=== PATIENT | female | born 1960 | race American Indian/Alaskan Native ===

== ENCOUNTER 2018-06-12 15:50 | Outpatient (CLI) | payer MEDICARE, OTHER ==
--- NOTE | 2018-06-13 13:51 | Mammography Report ---
BILATERAL DIGITAL SCREENING MAMMOGRAM with CAD: 06/12/18 15:50:00 CLINICAL: Routine screening. COMPARISON: None available. FINDINGS: There are bilateral scattered areas of fibroglandular density.No mass, architectural distortion or suspicious calcifications. IMPRESSION: No mammographic evidence of malignancy. BI-RADS CATEGORY: 1 -- Negative RECOMMENDATION: Routine mammographic screening in one year. COMMENT: Patient follow-up letters are generated by our [employer] application.
== END 2018-06-12 15:51 | disposition home or self-care (01) ==
LOC: SPVWC 15:50
PROVIDERS: ATTEND Surgery
DX: Z12.31 Encounter for screening mammogram for malignant neoplasm of breast (principal)
CPT/HCPCS: 77067

== ENCOUNTER 2018-12-22 13:48 | Inpatient (IN) | payer OTHER ==
[2018-12-22] MEDS ORDERED: SODIUM CHLORIDE FLUSH SYRINGE 10 ML IV PRN (14:07)
[2018-12-22] MEDS ORDERED: ZOFRAN IV PRN (14:07)
[2018-12-22] MEDS ORDERED: D5/0.45NS 1,000 ML IV SCH (15:00)
[2018-12-22] MEDS: LOVENOX SUB-Q SCH (18:00)
--- NOTE | 2018-12-22 19:02 | History and Physical Report ---
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 Radiating to the left side of the abdomen. Pain is 8-10 over 10. Haivng regular bowel movement with loss of appetite. Nauseated but no vomiting. Unable to keep any food down from nausea. Denies any fever. No hematemesis or melena. No alteration in bowel habits. On physical examination in my office patient was very tender in the right upper quadrant with rebound. Admission was therefore requested for further evaluation and management as patient was in severe pain while in my office. Past History Past Medical History: other (cancer of the appendix s/p resection, right renal stent for right hydronephrosis) Past Surgical History: Other (exploratory lap appendix) Social history: denies: smoking, alcohol abuse, prescription drug abuse Family history: CAD. denies: no significant family history Medications and Allergies Allergies Allergy/AdvReac Type Severity Reaction Status Date / Time No Known Allergies Allergy Unverified 12/22/18 14:07 Home Medications Medication Instructions Recorded Confirmed Last Taken Type Ibuprofen [Motrin 800 MG tab] 800 mg PO Q6HR PRN 12/23/18 12/23/18 Unknown History Active Meds: Active Medications Enoxaparin Sodium (Lovenox) 30 mg SUB-Q QDAY AMBER Dextrose/Sodium Chloride (D5/0.45ns) 1,000 mls @ 125 mls/hr IV DIRECT AMBER Levofloxacin/Dextrose (Levaquin 750mg/150ml) 750 mg in 150 mls @ 100 mls/hr IV Q24HR AMBER; Protocol Morphine Sulfate (Morphine) 2 mg IV Q4H PRN PRN Reason: Pain, Moderate (4-6) Ondansetron HCl (Zofran) 4 mg IV Q8H PRN PRN Reason: Nausea And Vomiting Sodium Chloride (Sodium Chloride Flush Syringe 10 Ml) 10 ml IV BID AMBER Sodium Chloride (Sodium Chloride Flush Syringe 10 Ml) 10 ml IV PRN PRN PRN Reason: LINE FLUSH Review of systems Constitutional: Well Nourished and Well developed. Head: NC/ AT Eyes: Denies any visual impairments. No discharge from the eyes Nose: Denies any rhinorrhea or epistaxis Throats: Denies any post nasal drainage. Ears: Denies any hearing deficits Cardiovascular system: Denies any chest pain, shortness of breath, orthopnea, paroxysmal nocturnal dyspnea, or palpitation. Respiratory system: Denies any cough, difficulty breathing, wheezing, pleuritic chest pain, Gastrointestinal system: Has abdominal pain, nausea No vomiting, hematemesis or melena. Neurological system: Denies any headache, slurred speech, facial droop, lateralizing weakness Genitalia system: Denies any dysuria, urinary frequency or urgency, urethral discharge Skin: No rashes, hyperpigmented spots. Hematological: Denies any cervical tenderness hemorrhages or petechia. Immunological: Denies any multiple septic spots, Lymphatic: Denies any generalized lymphadenopathy. Endocrine: Denies any polyuria, polydipsia, polyphagia. No heat or cold intolerance. Musculoskeletal system: No joint pain or swelling. Psych: No visual, tactile, auditory or hallucination Exam - Physical Exam Narrative exam: Constitutional: Well-nourished well-developed. In no distress Head: Normocephalic atraumatic Eyes: Pupils are equal round and reactive to light Nose: No enlarged turbinates, no septal deviation. Mouth: Moist mucous membranes. Neck: Supple no thyromegaly. No bruit. No JVD Heart: Regular rate and rhythm, S1-S2 normal. No rubs murmurs or gallop Lungs: Tender in the right upper quadrants Clear to auscultation bilaterally. no rales or rhonchi Abdomen: Soft, tender right upper quadrant with guarding and rebound. Bowel sound are present. Extremities: No edema, no cyanosis, no clubbing. Neuro: Alert oriented Oriented x3. No focal sensory or motor deficit. Skin: No rashes or hyperpigmented spots Musculoskeletal system: No joint pain or swelling Hematological: No petechia or subcutanous hemorrhages. Immunological: No multiple septic spots on the skin Lymphatic: No generalized lymphadenopathy Psychiatry: Euthymic. Calm. 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 Radiating to the left side of the abdomen. Pain is 8-10 over 10. Having regular bowel movement with loss of appetite. Nauseated but no vomiting. Unable to keep any food down from nausea. Denies any fever. No hematemesis or melena. No alteration in bowel habits. On physical examination in my office patient was very tender in the right upper quadrant with rebound. Admission was therefore requested for further evaluation and management as patient was in severe pain while in my office. 1.RUQ pain possibly Acute cholecyctitis 2. right inguinal mass - getting bigger in size 3. History of cancer of the appendix s/p excision Plan Nothing by mouth, IV hydration, blood and urine culture, IV Levaquin empirically, IV morphine Obtain a CT scan of the abdomen and pelvis Surgical consult Follow-up with lab results of the CT scan report DVT prophylaxis with Lovenox and GI with pantapraazole
[2018-12-22] MEDS: MORPHINE IV PRN ×2 (19:25→23:25)
[2018-12-22] MEDS: LEVAQUIN 750MG/150ML 750 MG/150 ML BAG IV SCH (19:27)
[2018-12-22] MEDS: SODIUM CHLORIDE FLUSH SYRINGE 10 ML IV SCH (21:10)
[2018-12-22 21:15] LABS: Basophils % (Auto) 0.5 % (0.0-1.8); Eosinophils # (Auto) 0.1 K/mm3 (0.0-0.4); Eosinophils % (Auto) 0.9 % (0.0-4.3); Hemoglobin 9.1 gm/dl (10.1-14.3); Lymphocytes # (Auto) 2.5 K/mm3 (1.2-5.4); Lymphocytes % (Auto) 28.8 % (13.4-35.0); Mean Corpuscular HGB Conc 34 % (30-34); Mean Corpuscular Volume 87 fl (79-97); Monocytes # (Auto) 1.1 K/mm3 (0.0-0.8); Monocytes % (Auto) 12.7 % (0.0-7.3); Platelet Count 535 K/mm3 (140-440); Red Blood Count 3.11 M/mm3 (3.65-5.03)
[2018-12-22 21:18] LABS: INR 1.22 (0.87-1.13)
[2018-12-22 21:19] LABS: Partial Thromboplastin Time 29.3 Sec. (24.2-36.6)
[2018-12-22 21:29] LABS: Albumin 2.9 g/dL (3.9-5); BUN/Creatinine Ratio 18; Blood Urea Nitrogen 11 mg/dL (7-17); Hemolysis Index 11
[2018-12-22 21:31] LABS: Alanine Aminotransferase < 5 units/L (7-56)
--- NOTE | 2018-12-22 22:34 | Cat Scan Report ---
CT of the abdomen and pelvis with contrast INDICATION: Right upper quadrant pain COMPARISON: None FINDINGS: Lung bases are clear. Liver shows no focal abnormality. Spleen is been removed. Left kidney shows septated cyst but is otherwise negative. There is right hydronephrosis of moderate severity bu t a right double-J stent is in place. Gallbladder is distended and contains stones but there is no de finite wall thickening or surrounding inflammation. There is distended colon and small bowel with pos toperative changes of the transverse colon seen. CT of the pelvis also shows distended bowel. There are masslike, septated fluid collections in the ab dominal cavity containing calcification. This has the appearance of pseudomyxoma peritonei. There is no definite bowel obstruction however is gas and stool is seen extending to the colon. There may be s ome minimal free fluid present. No adenopathy is seen. No definite skeletal abnormality. Uterus has b een removed. IMPRESSION: 1. Distended gallbladder with stones but no definite CT evidence for cholecystitis. 2. Septated masslike fluid collections containing wall calcification has the appearance of pseudomyxo ma peritonei or possibly peritoneal tuberculosis. Ovarian carcinoma is another consideration. While t here are multiple fluid-filled bowel loops the colon distended with gas and there is no definite linda l obstruction. Correlation with surgical history may be of benefit. Automated exposure control was utilized to diminish radiation dose. Signer Name: Fadi Gilbert MD Signed: 12/22/2018 10:29 PM Workstation Name: [id number]
[2018-12-23 06:08] LABS: Basophils # (Auto) 0.1 K/mm3 (0.0-0.1); Basophils % (Auto) 1.3 % (0.0-1.8); Eosinophils # (Auto) 0.1 K/mm3 (0.0-0.4); Eosinophils % (Auto) 0.7 % (0.0-4.3); Hematocrit 28.4 % (30.3-42.9); Hemoglobin 9.5 gm/dl (10.1-14.3); Lymphocytes # (Auto) 1.7 K/mm3 (1.2-5.4); Lymphocytes % (Auto) 19.5 % (13.4-35.0); Mean Corpuscular HGB Conc 34 % (30-34); Mean Corpuscular Volume 87 fl (79-97); Monocytes # (Auto) 1.3 K/mm3 (0.0-0.8); Monocytes % (Auto) 14.7 % (0.0-7.3); Platelet Count 548 K/mm3 (140-440); Red Blood Count 3.26 M/mm3 (3.65-5.03); Red Cell Distribution Width 16.6 % (13.2-15.2)
[2018-12-23 06:28] LABS: BUN/Creatinine Ratio 14; Blood Urea Nitrogen 10 mg/dL (7-17); Calcium 8.7 mg/dL (8.4-10.2); Hemolysis Index 1
[2018-12-23 06:30] LABS: Alanine Aminotransferase < 5 units/L (7-56)
--- NOTE | 2018-12-23 08:10 | Ultrasound Report ---
ULTRASOUND ABDOMEN, COMPLETE INDICATION: abdominal pain. COMPARISON: CT abdomen pelvis performed 12/22/2018.. FINDINGS: Pancreas: No significant abnormality. Abdominal Aorta: No significant abnormality. IVC: No significant abnormality. Liver: The liver measures 15 cm in length. No significant abnormality. Normal hepatopedal blood flow in the main portal vein. Gallbladder: Multiple large shadowing gallstones are identified in the gallbladder. No evidence for g allbladder wall thickening or pericholecystic fluid.. Bile ducts: No significant abnormality. Common bile duct measures 6.9 mm. Kidneys: Right: 11.1 cm in length. Moderate right hydronephrosis is identified. No focal renal lesi on. Left: 10.9 cm in length. Moderate left hydronephrosis is identified. No focal left renal lesion .. Spleen: Not identified, correlate for splenectomy.. Free fluid: Small ascites is identified.. Additional Findings: None. IMPRESSION: Cholelithiasis but no convincing evidence for acute cholecystitis. The common bile duct is mildly dil ated measuring 6.9 mm. No choledocholithiasis is identified. Moderate bilateral hydronephrosis. Small ascites. Signer Name: Alec Prather Jr, MD Signed: 12/23/2018 8:06 AM Workstation Name: [id number]
--- NOTE | 2018-12-23 08:27 | Progress Note ---
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 Radiating to the left side of the abdomen. Pain is 8-10 over 10. Having regular bowel movement with loss of appetite. Nauseated but no vomiting. Unable to keep any food down from nausea. Denies any fever. No hematemesis or melena. No alteration in bowel habits. On physical examination in my office patient was very tender in the right upper quadrant with rebound. Admission was therefore requested for further evaluation and management as patient was in severe pain while in my office. - RUQ pain possibly form Cholelitiasis CT scan and ultrasound of abdomen showed no evidence of cholecystitis Common bile duct was only minimally dilated Given the history of pain in the right upper quadrant with fatty food with proceed to obtain a HIDA scan. Consulted and discussed with the surgeon, for her inputs - Septated fluid collection possibly a myxoma Patient give a history of having had fluid collection 2 in the past and were surgically drained. This may possibly be same septated collection Obtain records from [place] where patient had her multiple surgeries The possibility of ovarian cancer was muted. We will obtain CA-125, alpha- fetoprotein and CA-19-9 to rule out other possible cancers - Hydronephrosis with a right ureteric stents We will trend Obtain a urology consult as patient stated that stent is long overdue for removal - Anemia possibly of chronic disease Will obtain iron, TIBC, B12, folic acid, stool for Hemoccults. - Hypokalemia We'll supplement and recheck potassium and magnesium - History of cancer of the appendix s/p excision - CODE STATUS: Patient is full code DVT prophylaxis with Lovenox and GI with pantapraazole Time spent: Over 30 minutes in direct patient care, reviewing laboratory data and radiological data as well as discussed with the patient her plan of care Subjective Date of service: 12/23/18 Principal diagnosis: RUQ pain, Cholelithiasis with maria g hydro and possible myxoma Interval history: The patient seen and examined, abdomen pain improved with the medications. No fever. No nausea or vomiting. Objective - Exam Narrative Exam: Constitutional: Well-nourished well-developed. In no distress Head: Normocephalic atraumatic Eyes: Pupils are equal round and reactive to light Nose: No enlarged turbinates, no septal deviation. Mouth: Moist mucous membranes. Neck: Supple no thyromegaly. No bruit. No JVD Heart: Regular rate and rhythm, S1-S2 normal. No rubs murmurs or gallop Lungs: Tender in the right upper quadrants Clear to auscultation bilaterally. no rales or rhonchi Abdomen: Soft, tender right upper quadrant with guarding and rebound. Bowel sound are present. Extremities: No edema, no cyanosis, no clubbing. Neuro: Alert oriented Oriented x3. No focal sensory or motor deficit. Skin: No rashes or hyperpigmented spots Musculoskeletal system: No joint pain or swelling Hematological: No petechia or subcutanous hemorrhages. Immunological: No multiple septic spots on the skin Lymphatic: No generalized lymphadenopathy Psychiatry: Euthymic. Calm. - Constitutional Vitals: Vital Signs - 12hr 12/22/18 12/22/18 12/22/18 22:00 22:23 23:25 Temperature 98.6 F Pulse Rate 62 Respiratory 18 16 17 Rate Blood Pressure 126/61 O2 Sat by Pulse 99 99 Oximetry 12/22/18 12/23/18 23:55 05:23 Temperature 98.0 F Pulse Rate 57 L Respiratory 18 20 Rate Blood Pressure 128/61 O2 Sat by Pulse 99 Oximetry - Labs CBC & Chem 7: 12/23/18 05:47 12/23/18 05:47 Labs: Abnormal lab results 12/22/18 12/22/18 12/22/18 Range/Units 20:55 20:55 20:56 RBC 3.11 L (3.65-5.03) M/mm3 Hgb 9.1 L (10.1-14.3) gm/dl Hct 27.0 L (30.3-42.9) % RDW 16.0 H (13.2-15.2) % Plt Count 535 H (140-440) K/mm3 [place] % (Auto) 12.7 H (0.0-7.3) % [place] # 1.1 H (0.0-0.8) K/mm3 PT 15.1 H (12.2-14.9) Sec. INR 1.22 H (0.87-1.13) Potassium 3.0 L (3.6-5.0) mmol/L Creatinine 0.6 L (0.7-1.2) mg/dL Glucose 116 H (65-100) mg/dL ALT < 5 L (7-56) units/L Total Protein 8.6 H (6.3-8.2) g/dL Albumin 2.9 L (3.9-5) g/dL 12/23/18 12/23/18 Range/Units 05:47 05:47 RBC 3.26 L (3.65-5.03) M/mm3 Hgb 9.5 L (10.1-14.3) gm/dl Hct 28.4 L (30.3-42.9) % RDW 16.6 H (13.2-15.2) % Plt Count 548 H (140-440) K/mm3 [place] % (Auto) 14.7 H (0.0-7.3) % [place] # 1.3 H (0.0-0.8) K/mm3 PT (12.2-14.9) Sec. INR (0.87-1.13) Potassium 3.1 L (3.6-5.0) mmol/L Creatinine (0.7-1.2) mg/dL Glucose 107 H (65-100) mg/dL ALT < 5 L (7-56) units/L Total Protein 8.5 H (6.3-8.2) g/dL Albumin 3.0 L (3.9-5) g/dL
[2018-12-23 10:08] LABS: Iron 27 ug/dL (37-170); Total Iron Binding Capacity 165 mcg/dL (250-450)
--- NOTE | 2018-12-23 10:31 | Consultation ---
History of Present Illness Consult date: 12/23/18 Reason for consult: gallstones Chief complaint: abdominal pain - History of present illness History of present illness: 58 yo F with hx of cancer of the appendix s/p appendectomy, partial colectomy, partial hysterectomy, exlap x2 for abdominal washout, pseudomyxoma presents as a direct admit from Dr. Rojas's office for abdominal pain. Patient states she has been having RUQ abdominal pain after eating fried/fatty foods for some time. She states she overdid it with the fried foods and started to experience the same pain. Does no radiate. No n/v. Now pain is minimal. She states she is thirsty. No c/d. Patient does not remember the details of all of her abdominal surgeries. last surgery was done at [facility]. No f/c Past History Past Medical History: other (cancer of the appendix s/p resection, right renal stent for right hydronephrosis) Past Surgical History: bowel surgery, Other (exploratory lap appendix) Social history: denies: smoking, alcohol abuse, prescription drug abuse Family history: CAD. denies: no significant family history Medications and Allergies Allergies Allergy/AdvReac Type Severity Reaction Status Date / Time No Known Allergies Allergy Unverified 12/22/18 14:07 Home Medications Medication Instructions Recorded Confirmed Last Taken Type Ibuprofen [Motrin 800 MG tab] 800 mg PO Q6HR PRN 12/23/18 12/23/18 Unknown History Active Meds: Active Medications Enoxaparin Sodium (Lovenox) 30 mg SUB-Q QDAY AMBER Last Admin: 12/22/18 18:00 Dose: Not Given Documented by: Dextrose/Sodium Chloride (D5/0.45ns) 1,000 mls @ 125 mls/hr IV DIRECT AMBER Last Admin: 12/22/18 19:24 Dose: 125 mls/hr Documented by: Levofloxacin/Dextrose (Levaquin 750mg/150ml) 750 mg in 150 mls @ 100 mls/hr IV Q24HR AMBER; Protocol Last Admin: 12/22/18 19:27 Dose: 100 mls/hr Documented by: Morphine Sulfate (Morphine) 2 mg IV Q4H PRN PRN Reason: Pain, Moderate (4-6) Last Admin: 12/22/18 23:25 Dose: 2 mg Documented by: Ondansetron HCl (Zofran) 4 mg IV Q8H PRN PRN Reason: Nausea And Vomiting Sodium Chloride (Sodium Chloride Flush Syringe 10 Ml) 10 ml IV BID AMBER Last Admin: 12/22/18 21:10 Dose: 10 ml Documented by: Sodium Chloride (Sodium Chloride Flush Syringe 10 Ml) 10 ml IV PRN PRN PRN Reason: LINE FLUSH Review of Systems All systems: negative (10 pt ROS performed and negative except for that listed in HPI) Exam Vital Signs Temp Resp BP 98.9 F 19 140/62 12/22/18 16:38 12/22/18 16:38 12/22/18 16:38 Narrative exam: Gen; AAOx3. NAD ENT: no scleral icterus or conjunctival pallor CV: s1, S2+ Resp; even and unlabored Abd: soft, ND, mild discomfort on palpation of RUQ. No r/r/g. Multiple well healed scars of abdomen Ext: no c/c/e Results - Labs 12/23/18 05:47 12/23/18 05:47 Abnormal lab results 12/22/18 12/22/18 12/22/18 Range/Units 20:55 20:55 20:56 RBC 3.11 L (3.65-5.03) M/mm3 Hgb 9.1 L (10.1-14.3) gm/dl Hct 27.0 L (30.3-42.9) % RDW 16.0 H (13.2-15.2) % Plt Count 535 H (140-440) K/mm3 [place] % (Auto) 12.7 H (0.0-7.3) % [place] # 1.1 H (0.0-0.8) K/mm3 PT 15.1 H (12.2-14.9) Sec. INR 1.22 H (0.87-1.13) Potassium 3.0 L (3.6-5.0) mmol/L Creatinine 0.6 L (0.7-1.2) mg/dL Glucose 116 H (65-100) mg/dL Iron (37-170) ug/dL TIBC (250-450) mcg/dL ALT < 5 L (7-56) units/L Total Protein 8.6 H (6.3-8.2) g/dL Albumin 2.9 L (3.9-5) g/dL Vitamin B12 (211-911) pg/mL 12/23/18 12/23/18 12/23/18 Range/Units 05:47 05:47 09:15 RBC 3.26 L (3.65-5.03) M/mm3 Hgb 9.5 L (10.1-14.3) gm/dl Hct 28.4 L (30.3-42.9) % RDW 16.6 H (13.2-15.2) % Plt Count 548 H (140-440) K/mm3 [place] % (Auto) 14.7 H (0.0-7.3) % Dixon # 1.3 H (0.0-0.8) K/mm3 PT (12.2-14.9) Sec. INR (0.87-1.13) Potassium 3.1 L (3.6-5.0) mmol/L Creatinine (0.7-1.2) mg/dL Glucose 107 H (65-100) mg/dL Iron 27 L (37-170) ug/dL TIBC 165 L (250-450) mcg/dL ALT < 5 L (7-56) units/L Total Protein 8.5 H (6.3-8.2) g/dL Albumin 3.0 L (3.9-5) g/dL Vitamin B12 (211-911) pg/mL 12/23/18 Range/Units 09:15 RBC (3.65-5.03) M/mm3 Hgb (10.1-14.3) gm/dl Hct (30.3-42.9) % RDW (13.2-15.2) % Plt Count (140-440) K/mm3 [place] % (Auto) (0.0-7.3) % [place] # (0.0-0.8) K/mm3 PT (12.2-14.9) Sec. INR (0.87-1.13) Potassium (3.6-5.0) mmol/L Creatinine (0.7-1.2) mg/dL Glucose (65-100) mg/dL Iron (37-170) ug/dL TIBC (250-450) mcg/dL ALT (7-56) units/L Total Protein (6.3-8.2) g/dL Albumin (3.9-5) g/dL Vitamin B12 172.2 L (211-911) pg/mL Diabetes panel 12/22/18 12/23/18 Range/Units 20:55 05:47 Sodium 139 144 (137-145) mmol/L Potassium 3.0 L 3.1 L (3.6-5.0) mmol/L Chloride 101.9 105.8 (98-107) mmol/L Carbon Dioxide 28 30 (22-30) mmol/L BUN 11 10 (7-17) mg/dL Creatinine 0.6 L 0.7 (0.7-1.2) mg/dL Glucose 116 H 107 H (65-100) mg/dL Calcium 9.0 8.7 (8.4-10.2) mg/dL AST 8 9 (5-40) units/L ALT < 5 L < 5 L (7-56) units/L Alkaline Phosphatase 66 70 (35-129) units/L Total Protein 8.6 H 8.5 H (6.3-8.2) g/dL Albumin 2.9 L 3.0 L (3.9-5) g/dL Calcium panel 12/22/18 12/22/18 12/23/18 Range/Units 17:07 20:55 05:47 Calcium 9.0 8.7 (8.4-10.2) mg/dL Phosphorus 3.30 4.10 D (2.5-4.5) mg/dL Albumin 2.9 L 3.0 L (3.9-5) g/dL Pituitary panel 12/22/18 12/23/18 Range/Units 20:55 05:47 Sodium 139 144 (137-145) mmol/L Potassium 3.0 L 3.1 L (3.6-5.0) mmol/L Chloride 101.9 105.8 (98-107) mmol/L Carbon Dioxide 28 30 (22-30) mmol/L BUN 11 10 (7-17) mg/dL Creatinine 0.6 L 0.7 (0.7-1.2) mg/dL Glucose 116 H 107 H (65-100) mg/dL Calcium 9.0 8.7 (8.4-10.2) mg/dL Adrenal panel 07/29/19 07/30/19 Range/Units 20:55 05:47 Sodium 139 144 (137-145) mmol/L Potassium 3.0 L 3.1 L (3.6-5.0) mmol/L Chloride 101.9 105.8 (98-107) mmol/L Carbon Dioxide 28 30 (22-30) mmol/L BUN 11 10 (7-17) mg/dL Creatinine 0.6 L 0.7 (0.7-1.2) mg/dL Glucose 116 H 107 H (65-100) mg/dL Calcium 9.0 8.7 (8.4-10.2) mg/dL Total Bilirubin 0.30 0.30 (0.1-1.2) mg/dL AST 8 9 (5-40) units/L ALT < 5 L < 5 L (7-56) units/L Alkaline Phosphatase 66 70 (35-129) units/L Total Protein 8.6 H 8.5 H (6.3-8.2) g/dL Albumin 2.9 L 3.0 L (3.9-5) g/dL - Imaging CT scan - abdomen: report reviewed, image reviewed CT scan - pelvis: report reviewed, image reviewed US - abdomen: report reviewed, image reviewed Assessment and Plan 58 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 1. start clear liquids. 2. IVF 3. prn pain control 4. patient counselled to avoid fatty and fried foods 5. records ordered from [facility] 6. OK to dc home if tolerates clear liquids. As patient's pain is controlled, she prefers to be discharged and follow up with her surgeon at [facility]. She will likely need elective cholecystectomy. D/W Dr. Rojas. Thank you, please call with questions.
[2018-12-23] MEDS: LEVAQUIN 750MG/150ML 750 MG/150 ML BAG IV SCH (10:58)
[2018-12-23] MEDS: LOVENOX SUB-Q SCH (10:58)
[2018-12-23] MEDS: SODIUM CHLORIDE FLUSH SYRINGE 10 ML IV SCH (10:58)
[2018-12-23 12:31] VITALS: BP 127/63
--- NOTE | 2018-12-23 19:30 | Discharge Summary ---
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 Radiating to the left side of the abdomen. Pain is 8-10/10. Having regular bowel movement with loss of appetite. Nauseated but no vomiting. Unable to keep any food down from nausea. Denies any fever. No hematemesis or melena. No alteration in bowel habits. On physical examination in my office patient was very tender in the right upper quadrant with rebound. Admission was therefore requested for further evaluation and management as patient was in sev ere pain while in my office. CT scan of the abdomen showed fluid collection in the abdomen and with septation and calcification suggesting of pseudomyxoma and cholelithiasis with no evidence of cholecystitis. Patient also had a dentition all face tent in the right ureter with moderate to severe hydronephrosis. On admission but it was commenced on empiric IV antibiotics with Levaquin. IV hydration. Nothing by mouth. Abdomen pain resolved with morphine. Surgical consult was obtained. 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 If there are that she should be discharged to follow-up with us at [facility]. Hypokalemia was identified while on admission. This was corrected with IV potassium. Patient was just ago when she developed for dialysis at [facility]. 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 HThis was explanined ot the patient who expressed understanding. Disposition: DC-01 TO HOME OR SELFCARE Time spent for discharge: 35 min Core Measure Documentation - Palliative Care Palliative Care/ Comfort Measures: Not Applicable - Core Measures Any of the following diagnoses?: none Exam - Physical Exam Narrative exam: Constitutional: Well-nourished well-developed. In no distress Head: Normocephalic atraumatic Eyes: Pupils are equal round and reactive to light Nose: No enlarged turbinates, no septal deviation. Mouth: Moist mucous membranes. Neck: Supple no thyromegaly. No bruit. No JVD Heart: Regular rate and rhythm, S1-S2 normal. No rubs murmurs or gallop Lungs: Tender in the right upper quadrants Clear to auscultation bilaterally. no rales or rhonchi Abdomen: Soft, tender right upper quadrant with guarding and rebound. Bowel sound are present. Extremities: No edema, no cyanosis, no clubbing. Neuro: Alert oriented Oriented x3. No focal sensory or motor deficit. Skin: No rashes or hyperpigmented spots Musculoskeletal system: No joint pain or swelling Hematological: No petechia or subcutanous hemorrhages. Immunological: No multiple septic spots on the skin Lymphatic: No generalized lymphadenopathy Psychiatry: Euthymic. Calm. - Constitutional Vitals: Temp Pulse Resp BP Pulse Ox 98.0 F 60 18 127/63 100 12/23/18 11:55 12/23/18 11:55 12/23/18 11:55 12/23/18 11:55 12/23/18 11:55 Plan Activity: advance as tolerated Weight Bearing Status: Weight Bear as Tolerated Diet: regular Follow up with: VLADIMIR HUFF MD [Primary Care Provider] - 7 Days Prescriptions: HYDROcodone/APAP 5-325 [[place] 5/325] 1 each PO Q8HR PRN #10 tablet PRN Reason: Pain
[2018-12-24] MEDS ORDERED: LOVENOX SUB-Q SCH (10:00)
== END 2018-12-23 21:09 | disposition home or self-care (01) | DRG 445 ==
LOC: UNDOADMIN 13:48 → 3A 13:48
PROVIDERS: ADMIT Family Medicine; ATTEND Family Medicine
DX: K80.20 Calculus of gallbladder without cholecystitis without obstruction (principal); N13.30 Unspecified hydronephrosis; E87.6 Hypokalemia; D20.1 Benign neoplasm of soft tissue of peritoneum; D64.9 Anemia, unspecified; Z90.49 Acquired absence of other specified parts of digestive tract; Z82.49 Family history of ischemic heart disease and other diseases of the circulatory system; Z90.711 Acquired absence of uterus with remaining cervical stump; Z90.81 Acquired absence of spleen
CPT/HCPCS: 36415; 74177; 76700; 80053; 82106; 82607; 82728; 82747; 83550; 83690; 83735; 84100; 85025; 85610; 85730; 86301; 86304; 93005; 93010; G0378; J1650; J1956; J2270; Q9967